=== PATIENT | female | born 1955 | race Caucasian/White ===

== ENCOUNTER 2017-11-16 07:18 | Emergency (ER) | payer BC ==
--- NOTE | 2017-11-16 07:22 | EDM.PDOC ---
ED HPI GENERAL MEDICAL PROBLEM - General Chief Complaint: Lower Extremity Injury/Pain Stated Complaint: [id number] FELL AND HURT KNEE Time Seen by Provider: 11/16/17 07:22 Source of Information: Reports: Patient, RN, RN Notes Reviewed History Limitations: Reports: No Limitations - History of Present Illness INITIAL COMMENTS - FREE TEXT/NARRATIVE: Arrives from home by POV with c/o left knee and hip pain sustained from a ground level fall just [employer] this morning when pt slipped getting into her car and fell on the garage floor. Also c/o small cut or scrape to her elbow. Denies head injury, or LOC. Denies any other injury. Onset: Today, Sudden Duration: Constant Quality: Reports: Ache Severity: Moderate Improves with: Reports: Immobilization Worsens with: Reports: Movement Context: Reports: Other (fall) Associated Symptoms: Reports: No Other Symptoms Left Knee Pain Score (Numeric/FACES): 6 - Related Data Allergies Allergy/AdvReac Type Severity Reaction Status Date / Time No Known Allergies Allergy Verified 11/16/17 07:31 Home Meds: Home Meds Hydrochlorothiazide [Hydrochlorothiazide] 25 mg PO DAILY 11/16/17 [History] Lisinopril [Lisinopril] 40 mg PO DAILY 11/16/17 [History] Methocarbamol [Methocarbamol] 500 mg PO DAILY 11/16/17 [History] Past Medical History Cardiovascular History: Reports: High Cholesterol, Hypertension Musculoskeletal History: Reports: Back Pain, Chronic Endocrine/Metabolic History: Reports: Obesity/BMI 30+ Social & Family History - Family History Family Medical History: Noncontributory - Living Situation & Occupation Occupation: Employed Review of Systems - Review of Systems Review Of Systems: ROS reveals no pertinent complaints other than HPI. ED EXAM, GENERAL - Physical Exam Exam: See Below Exam Limited By: No Limitations General Appearance: Alert, WD/WN, No Apparent Distress, Obese Throat/Mouth: Normal Inspection, Normal Voice, No Airway Compromise Head: Atraumatic, Normocephalic Neck: Normal Inspection, Full Range of Motion Respiratory/Chest: No Respiratory Distress Cardiovascular: Normal Peripheral Pulses Back Exam: Normal Inspection Extremities: Leg Pain (mild tenderness to left hip w/full ROM), Limited Range of Motion (left knee with anterior swelling and bruising, acutely tender, skin intact), Other (abrasion to Rt posterior elbow, full ROM, no swelling) Neurological: Alert, Oriented, CN II-XII Intact, Normal Cognition, No Motor/ Sensory Deficits Psychiatric: Normal Mood Course - Vital Signs Last Recorded V/S: Last Vital Signs Temp 36.6 C 11/16/17 07:26 Pulse 96 11/16/17 07:26 Resp 18 11/16/17 07:26 BP 165/87 H 11/16/17 07:38 Pulse Ox 100 11/16/17 07:26 - Orders/Labs/Meds Orders: Active Orders 24 hr Category Date Time Status Immobilizer [RC] ASDIRECTED Care 11/16/17 09:15 Active DME for Discharge [COMM] Routine Oth 11/16/17 09:16 Ordered Meds: Medications Discontinued Medications Generic Name Dose Route Start Last Admin Trade Name Freq PRN Reason Stop Dose Admin Bacitracin 1 dose 11/16/17 07:50 11/16/17 07:56 Bacitracin Oint 1 Gm TOP 11/16/17 07:51 1 dose ONETIME ONE Administration Oxycodone/Acetaminophen 1 tab 11/16/17 07:49 11/16/17 07:55 Percocet 325-5 Mg PO 11/16/17 07:50 1 tab ONETIME ONE Administration - Radiology Interpretation Free Text/Narrative:: Xray left hip/pelvis: OA, no fracture per Rad. report. Xray left knee: small chip/avulsion fracture, see Rad. report. Departure - Departure Time of Disposition: 09:14 Disposition: Home, Self-Care 01 Condition: Fair Clinical Impression: Avulsion fracture of bone Patella fracture Qualifiers: Encounter type: initial encounter Fracture type: closed Fracture morphology: other fracture Laterality: left Qualified Code(s): S82.092A - Other fracture of left patella, initial encounter for closed fracture Contusion of knee, left Qualifiers: Encounter type: initial encounter Qualified Code(s): S80.02XA - Contusion of left knee, initial encounter Abrasion of elbow, right Qualifiers: Encounter type: initial encounter Qualified Code(s): S50.311A - Abrasion of right elbow, initial encounter Fall as cause of accidental injury at home as place of occurrence Qualifiers: Encounter type: initial encounter Qualified Code(s): W19.XXXA - Unspecified fall, initial encounter - Discharge Information Instructions: Abrasion, Contusion, Patellar Fracture With Rehab-SportsMed, Abrasion, [id number] Referrals: Janeth Arenas, [employer] [Primary Care Provider] - Forms: ED Department Discharge Additional Instructions: Rx: Diclofenac 75mg Rx: Hydrocodone APAP 5mg/325mg *Do not drive while under the influence of this medication. Rest, ice pack, and elevate left knee. Use knee immobilizer and crutches until seen in clinic next week for recheck. - My Orders Last 24 Hours: My Active Orders 11/16/17 09:15 Immobilizer [RC] ASDIRECTED 11/16/17 09:16 DME for Discharge [COMM] Routine - Assessment/Plan Last 24 Hours: My Active Orders 11/16/17 09:15 Immobilizer [RC] ASDIRECTED 11/16/17 09:16 DME for Discharge [COMM] Routine
[2017-11-16] MEDS ORDERED: Acetaminophen/oxyCODONE 325-5 MG Tab PO ONE (07:49)
[2017-11-16] MEDS ORDERED: Bacitracin Oint 1 GM U/D Packet TOP ONE (07:50)
--- NOTE | 2017-11-16 08:36 | CR ---
Clinical history: 62-year-old female left hip pain associated with fall. Interpretation: AP pelvis/hips and AP/frog lateral views of the left hip reveal no sign of pelvic or either hip fracture/dislocation. Chronic arthritic changes lower lumbar spine. Bony spurs arising off the greater trochanters both hips. Symmetric spacing normal-appearing SI and hip joints. No foreign bodies. CONCLUSION: No fractures. Lower lumbar disc disease and arthritis of the spine.
--- NOTE | 2017-11-16 08:40 | CR ---
Clinical history: 62-year-old female left knee pain associated with fall (no ipsilateral hip fracture or dislocation). Interpretation: AP, lateral and sunrise views of the left hip confirm chronic arthritis i.e. reactive sclerosis and marginal spur formation patellofemoral surface of the left patella. *No sign of joint effusion but ...there is a discrete sliver-like bone fragment with poorly corticate d margins identified directly above the patella on both the AP and lateral views, medially that may r epresent a fracture. (No obvious "donor site") Symmetric knee joint spacing with arthritic spurs involving the intercondylar tibial spines and [place] of the tibial plateau i.e. arthritis. No sign of other fracture, dislocation or radiopaque loose joint body left knee.
== END 2017-11-16 10:12 | disposition home or self-care (01) ==
LOC: DL.ED 07:18
DX: S82.092A Other fracture of left patella, initial encounter for closed fracture (principal); S80.02XA Contusion of left knee, initial encounter; S50.311A Abrasion of right elbow, initial encounter; E78.00 Pure hypercholesterolemia, unspecified; I10 Essential (primary) hypertension; Z79.899 Other long term (current) drug therapy; W01.0XXA Fall on same level from slipping, tripping and stumbling without subsequent striking against object, initial encounter
CPT/HCPCS: 73502; 73562; 99284; A9270